=== PATIENT | female | born 1955 | race Caucasian/White ===

== ENCOUNTER 2017-09-12 15:40 | Emergency (ER) | payer MEDICAID, OTHER ==
[2017-09-12 15:41] VITALS: BMI 28.3
[2017-09-12] MEDS ORDERED: Sodium Chloride 0.9% 1,000 ML IV STA (16:11)
--- NOTE | 2017-09-12 16:14 | C.PDOC ---
Time Seen by Provider: 09/12/17 16:07 Chief Complaint (Nursing): Abdominal Pain Past Medical History Vital Signs: Last Vital Signs Temp 97.9 F 09/12/17 15:49 Pulse 85 09/12/17 15:49 Resp 18 09/12/17 15:49 BP 153/79 H 09/12/17 15:49 Pulse Ox 99 09/12/17 15:49 - Medical History PMH: Diabetes, HTN, Hypercholesterolemia Denies: Chronic Kidney Disease Family History: States: Unknown Family Hx - Social History Hx Tobacco Use: No Hx Alcohol Use: No Hx Substance Use: No - Immunization History Hx Tetanus Toxoid Vaccination: No Hx Influenza Vaccination: No Hx Pneumococcal Vaccination: No ED Course And Treatment O2 Sat by Pulse Oximetry: 99 Disposition - Disposition
[2017-09-12 16:45] LABS: BASO % 0.5 % (0.0-2.0); EOS # 0.1 K/uL (0.0-0.7); EOS % 1.9 % (0.0-4.0); HEMATOCRIT 34.6 % (34.0-47.0); LYMPH # 2.3 K/uL (1.0-4.3); LYMPH % 35.1 % (20.0-40.0); MEAN CELL VOLUME 83.9 fL (81.0-99.0); MEAN CORPUSCULAR HEMOGLOBIN 27.4 pg (27.0-31.0); MEAN CORPUSCULAR HGB CONC 32.6 g/dL (33.0-37.0); MEAN PLATELET VOLUME 8.3 fL (7.2-11.7); MONO # 0.6 K/uL (0.0-0.8); MONO % 9.7 % (0.0-10.0); RED CELL DISTRIBUTION WIDTH 13.7 % (11.5-14.5); WHITE BLOOD COUNT 6.4 K/uL (4.8-10.8)
[2017-09-12] MEDS ORDERED: Sodium Chloride 0.9% 1,000 ML ONE (16:45)
[2017-09-12 16:51] LABS: URINE BILIRUBIN NEGATIVE (NEGATIVE); URINE BLOOD NEGATIVE (NEGATIVE); URINE COLOR Straw (YELLOW); URINE GLUCOSE (UA) NORMAL (Normal); URINE KETONE NEGATIVE (NEGATIVE); URINE LEUKOCYTE ESTERASE NEG Leu/uL (Negative); URINE PROTEIN NEGATIVE (NEGATIVE); URINE UROBILINOGEN NORMAL mg/dL (0.2-1.0); WBC URINE < 1 /hpf (0-5)
--- NOTE | 2017-09-12 16:56 | C.PDOC ---
History Of Present Illness 61 y/o female presents to the ER complaining of pain in the epigastric region in the abdomen which has been present for the past 3 to 4 days. Patient reports that she feels some distention. Patient reports she has diarrhea and flatus. Patient denies having hematuria or fever. Time Seen by Provider: 09/12/17 16:07 Chief Complaint (Nursing): Abdominal Pain History Per: Patient History/Exam Limitations: no limitations Onset/Duration Of Symptoms: Hrs Current Symptoms Are (Timing): Still Present Severity: Moderate Past Medical History Reviewed: Historical Data, Nursing Documentation, Vital Signs Vital Signs: Last Vital Signs Temp 97.9 F 09/12/17 15:49 Pulse 85 09/12/17 15:49 Resp 18 09/12/17 15:49 BP 153/79 H 09/12/17 15:49 Pulse Ox 99 09/12/17 17:06 - Medical History PMH: Diabetes, HTN, Hypercholesterolemia Denies: Chronic Kidney Disease Surgical History: No Surg Hx Family History: States: No Known Family Hx - Social History Hx Tobacco Use: No Hx Alcohol Use: No Hx Substance Use: No - Immunization History Hx Tetanus Toxoid Vaccination: No Hx Influenza Vaccination: No Hx Pneumococcal Vaccination: No Review Of Systems Except As Marked, All Systems Reviewed And Found Negative. Constitutional: Negative for: Fever, Chills Gastrointestinal: Positive for: Abdominal Pain (epigastric region), Diarrhea Genitourinary: Negative for: Hematuria Physical Exam - Physical Exam Additional Physical Exam Comments: Gen: No acute distress. Head: Normocephalic, atraumatic. Eyes: PERRL. ENT: Moist mucous membranes. Neck: Supple. Chest: No tenderness. CV: Regular rate. Radial pulses 2+ bilaterally. Resp: Clear to auscultation bilaterally. Abd: Soft, Nontender, Distended, lower abdominal surgical scar Extremities: No swelling or tenderness. Skin: No rash. Neuro: Alert, no focal deficit. ED Course And Treatment - Laboratory Results Result Diagrams: 09/12/17 16:40 09/12/17 16:40 O2 Sat by Pulse Oximetry: 99 Medical Decision Making Medical Decision Making: Patient in no acute distress. Labs unremarkable. CT Impression: Postsurgical changes of the abdomen as described. Retention of formed stool suggesting constipation. No acute findings such as bowel obstruction. Will discharge, medications, f/u PMD, return to ED for worsening pain, fever, vomiting, dyspnea. Disposition - Disposition Disposition: HOME/ ROUTINE Disposition Time: 18:29 Condition: STABLE Prescriptions: Docusate [Colace] 100 mg PO BID #30 cap Polyethylene Glycol 3350 [Miralax] 17 gm PO DAILY #238 gm Instructions: Constipation (ED) Forms: [facility] (Portuguese) - Clinical Impression Clinical Impression: Constipation - Scribe Statement The provider has reviewed the documentation as recorded by the Peter Ennis Provider Attestation: All medical record entries made by the Peter were at my direction and personally dictated by me. I have reviewed the chart and agree that the record accurately reflects my personal performance of the history, physical exam, medical decision making, and the department course for this patient. I have also personally directed, reviewed, and agree with the discharge instructions and disposition.
[2017-09-12 16:57] LABS: ALB/GLOB RATIO 1.2 (1.0-2.1); ALKALINE PHOSPHATASE 99 U/L (38-126); ALT/SGPT 24 U/L (9-52); AST/SGOT 26 U/L (14-36); BILIRUBIN,TOTAL 0.3 mg/dL (0.2-1.3); BLOOD UREA NITROGEN 8 mg/dL (7-17); CALCIUM 8.2 mg/dl (8.6-10.4); CARBON DIOXIDE 24 mmol/L (22-30); CHLORIDE 105 mmol/L (98-107); GFR AFRICAN-AMERICAN > 60; GLUCOSE,RANDOM 92 mg/dL (65-105); POTASSIUM 3.3 mmol/L (3.6-5.2); SODIUM 138 mmol/L (132-148); TOTAL PROTEIN 7.5 g/dL (6.3-8.3)
[2017-09-12] MEDS ORDERED: Iodixanol 320 MG/ML 100 ML BOTTLE IV ONE (17:37)
[2017-09-12 18:53] VITALS: BP 118/76; PULSE 81; RESP 16; TEMP 98.2; O2SAT 98
--- NOTE | 2017-09-13 08:21 | CT ---
PROCEDURE: CT Abdomen and Pelvis with contrast HISTORY: abd distention, vomiting COMPARISON: Abdomen and pelvis CT with contrast 03/27/2016. TECHNIQUE: Following the intravenous administration of iodinated contrast material, a CT examination of the abdomen and pelvis performed from the domes of the diaphragms to the symphysis pubis with reformatted datasets provided not only axial but also sagittal and coronal planes. Oral contrast was not administered as per referring physician request. Contrast dose: Visipaque 320, 100 cc. Radiation dose: Total exam DLP = 502.98 mGy-cm. This CT exam was performed using one or more of the following dose reduction techniques: Automated exposure control, adjustment of the mA and/or kV according to patient size, and/or use of iterative reconstruction technique. FINDINGS: LOWER THORAX: Unremarkable. LIVER: Unremarkable. No gross lesion or ductal dilatation. GALLBLADDER AND BILE DUCTS: The gallbladder is contracted is poorly evaluated. No radiodense cholelithiasis is appreciated or pericholecystic fluid collection. PANCREAS: Unremarkable. No gross lesion or ductal dilatation. SPLEEN: Unremarkable. ADRENALS: Unremarkable. No mass. KIDNEYS AND URETERS: Unremarkable. No hydronephrosis. No solid mass. VASCULATURE: Unremarkable. No aortic aneurysm. BOWEL: Postop changes are once again seen related to the stomach. A left flank/ lower quadrant small bowel, likely a function of gastric bypass surgery. No bowel obstruction. No gross mural thickening. APPENDIX: Normal appendix. PERITONEUM: Unremarkable. No free fluid. No free air. LYMPH NODES: Unremarkable. No enlarged lymph nodes. BLADDER: Unremarkable. REPRODUCTIVE: Unremarkable. BONES: No acute fracture. OTHER FINDINGS: None. IMPRESSION: New acute abdominal or pelvic findings. Prior postop changes from gastric bypass surgery are again appreciated. Prior small-bowel dilatation at the left lower quadrant appears to have resolved. If symptoms persist or worsen follow-up CT may be considered.
== END 2017-09-12 19:21 | disposition home or self-care (01) ==
LOC: C.ER 15:40
DX: K59.00 Constipation, unspecified (principal); I10 Essential (primary) hypertension; E11.9 Type 2 diabetes mellitus without complications; E78.00 Pure hypercholesterolemia, unspecified
CPT/HCPCS: 74177; 80053; 81001; 83690; 85025; 96361; 96374; 99284; J2405; J7040; Q9967

== ENCOUNTER 2018-05-01 17:32 | Emergency (ER) | payer MEDICAID ==
[2018-05-01 17:33] VITALS: BMI 28.3
--- NOTE | 2018-05-01 20:05 | C.PDOC ---
History Of Present Illness 62 y/o female presents to the emergency department with complaints of cough, congestion and body aches intermittently for the past 3 days, associated with knee discomfort. Patient denies fever, chills, or vomiting; otherwise she is currently speaking complete sentences. Time Seen by Provider: 05/01/18 20:05 Chief Complaint (Nursing): Cough, Cold, Congestion History Per: Patient History/Exam Limitations: no limitations Onset/Duration Of Symptoms: Days Current Symptoms Are (Timing): Still Present Severity: Moderate Pain Scale Rating Of: 4 Recent travel outside of the [place]: No Past Medical History Reviewed: Historical Data, Nursing Documentation, Vital Signs Vital Signs: Last Vital Signs Temp 98.2 F 05/01/18 17:55 Pulse 67 05/01/18 20:50 Resp 14 05/01/18 20:50 BP 130/73 05/01/18 20:50 Pulse Ox 98 05/01/18 21:28 - Medical History PMH: Diabetes, HTN, Hypercholesterolemia Denies: Chronic Kidney Disease Family History: States: No Known Family Hx - Social History Hx Tobacco Use: No Hx Alcohol Use: No Hx Substance Use: No - Immunization History Hx Tetanus Toxoid Vaccination: No Hx Influenza Vaccination: No Hx Pneumococcal Vaccination: No Review Of Systems Constitutional: Positive for: Other (Body aches). Negative for: Fever, Chills Cardiovascular: Negative for: Chest Pain, Palpitations Respiratory: Positive for: Cough, Other (Congestion) Gastrointestinal: Negative for: Nausea, Vomiting, Diarrhea Musculoskeletal: Positive for: Other (Knee pain) Neurological: Negative for: Weakness, Numbness Physical Exam - Physical Exam Appears: Non-toxic Skin: Warm, Dry Head: Normacephalic Eye(s): bilateral: Normal Inspection Oral Mucosa: Moist Throat: No Erythema, No Exudate Neck: Trachea Midline, Supple Chest: Symmetrical, No Tenderness Cardiovascular: Rhythm Regular Respiratory: No Rales, No Rhonchi, No Wheezing Gastrointestinal/Abdominal: Soft, No Tenderness Neurological/Psych: Oriented x3 ED Course And Treatment - Laboratory Results Result Diagrams: 05/01/18 20:30 05/01/18 20:30 ECG: Interpreted By Me, Viewed By Me ECG Rhythm: Sinus Rhythm (60), Nonspecific Changes O2 Sat by Pulse Oximetry: 98 (RA) Pulse Ox Interpretation: Normal - Radiology CXR: Interpreted by Me, Viewed By Me CXR Interpretation: No: Infiltrates, Fracture, Pnemothorax Progress Note: Blood work, ECG, and chest x-ray ordered. Toradol and duoneb administered. Reevaluation Time: 22:11 Reassessment Condition: Improved Medical Decision Making Medical Decision Making: Upon provider reevaluation patient is feeling better, is medically stable, and requires no further treatment in the ED at this time. Patient will be discharged home with Rx for albuterol, naproxen . Counseling was provided and all questions were answered regarding diagnosis and need for follow up with the referred clinic. There is agreement to discharge plan. Return if symptoms persist or worsen. Disposition Counseled Patient/Family Regarding: Studies Performed, Diagnosis, Need For Followup, Rx Given - Disposition Referrals: [facility] [Outside] [facility] [Outside] Disposition: HOME/ ROUTINE Disposition Time: 20:05 Condition: FAIR Additional Instructions: Please return if symptoms recur Prescriptions: Albuterol HFA [Ventolin HFA 90 mcg/actuation (8 g)] 2 puff IH [id number] PRN #1 puff PRN Reason: Wheezing Naproxen [Naprosyn] 1 tab PO BID PRN #25 tab PRN Reason: Pain Instructions: Upper Respiratory Infection (ED) Forms: [facility] [employer] (Russian) - Clinical Impression Clinical Impression: URI (upper respiratory infection) - Scribe Statement The provider has reviewed the documentation as recorded by the Peter Corey Provider Attestation: All medical record entries made by the Scribe were at my direction and personally dictated by me. I have reviewed the chart and agree that the record accurately reflects my personal performance of the history, physical exam, medical decision making, and the department course for this patient. I have also personally directed, reviewed, and agree with the discharge instructions and disposition.
[2018-05-01 20:34] LABS: BASO % 0.6 % (0.0-2.0); EOS # 0.2 K/uL (0.0-0.7); EOS % 2.9 % (0.0-4.0); HEMOGLOBIN 11.2 g/dL (11.0-16.0); LYMPH # 2.6 K/uL (1.0-4.3); LYMPH % 38.1 % (20.0-40.0); MEAN CELL VOLUME 83.8 fL (81.0-99.0); MEAN CORPUSCULAR HEMOGLOBIN 27.2 pg (27.0-31.0); MEAN CORPUSCULAR HGB CONC 32.5 g/dL (33.0-37.0); MEAN PLATELET VOLUME 8.2 fL (7.2-11.7); MONO # 0.6 K/uL (0.0-0.8); MONO % 9.3 % (0.0-10.0); NEUT # 3.4 K/uL (1.8-7.0); NEUT % 49.1 % (50.0-75.0); NRBC % 0.1 % (0.0-2.0); RBC 4.1 Mil/uL (3.80-5.20); RED CELL DISTRIBUTION WIDTH 13.8 % (11.5-14.5); WHITE BLOOD COUNT 6.9 K/uL (4.8-10.8)
[2018-05-01 20:43] LABS: PROTHROMBIN TIME 10.9 SECONDS (9.7-12.2)
[2018-05-01 20:57] LABS: ALB/GLOB RATIO 1.4 (1.0-2.1); ALBUMIN 4.3 g/dL (3.5-5.0); ALT/SGPT 24 U/L (9-52); AST/SGOT 24 U/L (14-36); BLOOD UREA NITROGEN 15 mg/dL (7-17); CALCIUM 8.8 mg/dl (8.6-10.4); GFR AFRICAN-AMERICAN > 60; GFR NON-AFRICAN AMERICAN > 60
[2018-05-01] MEDS: Albuterol-Ipratrop 3 mg / 0.5 (3 ml) UD IH SCH (21:26)
[2018-05-01 21:27] LABS: ARTERIAL BLOOD GAS HCO3 25.7 mmol/L (21-28); ARTERIAL BLOOD GAS O2 SAT 97.6 % (95-98); ARTERIAL BLOOD GAS PCO2 42 mm/Hg (35-45); ARTERIAL BLOOD GAS PO2 107 mm/Hg (80-100); ARTERIAL BLOOD GAS TCO2 27.3 mmol/L (22-28)
[2018-05-01] MEDS ORDERED: Albuterol-Ipratrop 3 mg / 0.5 (3 ml) UD ONE (21:35)
[2018-05-01 22:17] VITALS: BP 122/59; PULSE 69; RESP 18; TEMP 98; O2SAT 97
--- NOTE | 2018-05-02 10:12 | RAD ---
Date of service: 05/01/2018 HISTORY: Shortness of breath COMPARISON: No prior. TECHNIQUE: Chest PA and lateral FINDINGS: LUNGS: Diffuse increased interstitial lung markings. Biapical pleural thickening. PLEURA: No significant pleural effusion identified. No pneumothorax apparent. CARDIOVASCULAR: Normal. OSSEOUS STRUCTURES: Degenerative changes in the spine. VISUALIZED UPPER ABDOMEN: Gaseous distention of bowel loops in the upper abdomen. OTHER FINDINGS: None. IMPRESSION: Diffuse increased interstitial lung markings. Biapical pleural thickening.
--- NOTE | 2018-05-02 12:00 | CARD ---
APPROVED REPORT Date of service: 05/01/2018 EKG Measurement Heart [id number] <Conclusion> Normal sinus rhythm Normal ECG
== END 2018-05-01 22:31 | disposition home or self-care (01) ==
LOC: C.ER 17:32
DX: J06.9 Acute upper respiratory infection, unspecified (principal); E11.9 Type 2 diabetes mellitus without complications; I10 Essential (primary) hypertension; E78.00 Pure hypercholesterolemia, unspecified
CPT/HCPCS: 71046; 80053; 82803; 83735; 85025; 85610; 85730; 93005; 94640; 96374; 99285; J1885

== ENCOUNTER 2018-09-16 15:13 | Emergency (ER) | payer MEDICAID ==
[2018-09-16 15:14] VITALS: BMI 28.3
[2018-09-16 15:28] VITALS: BP 153/85; PULSE 64; RESP 20; TEMP 97.9; O2SAT 100
--- NOTE | 2018-09-16 16:23 | C.PDOC ---
History Of Present Illness 62 year old female presents to the ED for evaluation of fatigue and occasional dizziness for 3 weeks. Patient reports there are other sick contacts at home with mild viral syndrome. 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 Patient is requesting some pills to give her more energy. Patient has history of anxiety. She denies fever, chills. Time Seen by Provider: 09/16/18 16:11 Chief Complaint (Nursing): Dizziness/Lightheaded History Per: Patient History/Exam Limitations: no limitations Onset/Duration Of Symptoms: Other (three weeks ) Current Symptoms Are (Timing): Still Present Past Medical History Reviewed: Historical Data, Nursing Documentation, Vital Signs Vital Signs: Last Vital Signs Temp 97.9 F 09/16/18 15:26 Pulse 64 09/16/18 15:26 Resp 20 09/16/18 15:26 BP 153/85 H 09/16/18 15:26 Pulse Ox 100 09/16/18 15:26 - Medical History PMH: Diabetes, HTN, Hypercholesterolemia Denies: Chronic Kidney Disease Surgical History: No Surg Hx Family History: States: Unknown Family Hx - Social History Hx Tobacco Use: No Hx Alcohol Use: No Hx Substance Use: No - Immunization History Hx Tetanus Toxoid Vaccination: No Hx Influenza Vaccination: No Hx Pneumococcal Vaccination: No Review Of Systems Constitutional: Positive for: Other (fatigue ) Neurological: Positive for: Dizziness Physical Exam - Physical Exam Appears: Non-toxic, No Acute Distress, Other (anxious ) Skin: Normal Color, Warm, Dry Head: Atraumatic, Normacephalic Eye(s): bilateral: Normal Inspection Oral Mucosa: Moist Neck: Supple Chest: Symmetrical, No Deformity, No Tenderness Cardiovascular: Rhythm Regular, No Murmur Respiratory: Normal Breath Sounds, No Rales, No Rhonchi, No Wheezing Extremity: Normal ROM, Capillary Refill (less than 2 seconds ) Neurological/Psych: Oriented x3, Normal Speech, Normal Cognition ED Course And Treatment O2 Sat by Pulse Oximetry: 100 (on RA ) Pulse Ox Interpretation: Normal Progress Note: Motrin PO given. 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 Disposition Doctor Will See Patient In The: Office Counseled Patient/Family Regarding: Studies Performed, Diagnosis - Disposition Referrals: [facility] [Outside] [facility] [Outside] [facility] [Outside] [facility] [Outside] Disposition: HOME/ ROUTINE Disposition Time: 16:23 Condition: GOOD Additional Instructions: mild viral syndrome [place]a 2-3 [place]rington en lawson casa Ibuprofeno/advil 400 mg cada 6 horas akshat necessario para dolor de las caderas sigue con lawson medico akshat necessario. Instructions: Fatigue (DC) Forms: [facility] (Estonian) Print Language: SWAZI - Clinical Impression Clinical Impression: Anxiety, Malaise and fatigue - Scribe Statement The provider has reviewed the documentation as recorded by the Scribe (Juliette Pearl) Provider Attestation: All medical record entries made by the Scribe were at my direction and personally dictated by me. I have reviewed the chart and agree that the record accurately reflects my personal performance of the history, physical exam, medical decision making, and the department course for this patient. I have also personally directed, reviewed, and agree with the discharge instructions and disposition.
== END 2018-09-16 16:41 | disposition home or self-care (01) ==
LOC: C.ER 15:13
DX: F41.9 Anxiety disorder, unspecified (principal); R53.83 Other fatigue

== ENCOUNTER 2018-11-20 19:52 | Emergency (ER) | payer MEDICAID ==
[2018-11-20 19:53] VITALS: BMI 28.3
--- NOTE | 2018-11-20 21:00 | C.PDOC ---
History Of Present Illness 63 year old female presents to the ED c/o colichy abdominal pain and anxiety. Patient reports previous history of anxiety with no psychiatric follow up. Patient with many prior evaluations in the ED for same. Patient denies fever, ch ills, nausea, vomit, diarrhea, weakness, numbness. Time Seen by Provider: 11/20/18 20:55 Chief Complaint (Nursing): Abdominal Pain History Per: Patient History/Exam Limitations: no limitations Onset/Duration Of Symptoms: Days Current Symptoms Are (Timing): Still Present Location Of Pain/Discomfort: Diffuse Quality Of Discomfort: "Pain", Other Associated Symptoms: denies: Nausea, Vomiting, Diarrhea, Urinary Symptoms Recent travel outside of the [place]: No Additional History Per: Patient Abnormal Vaginal Bleeding: No Past Medical History Reviewed: Historical Data, Nursing Documentation, Vital Signs Vital Signs: Last Vital Signs Temp 97.8 F 11/20/18 20:28 Pulse 63 11/20/18 20:28 Resp 20 11/20/18 20:28 BP 174/86 H 11/20/18 20:28 Pulse Ox 100 11/20/18 20:28 - Medical History PMH: Diabetes, HTN, Hypercholesterolemia Denies: Chronic Kidney Disease Surgical History: No Surg Hx Family History: States: Unknown Family Hx - Social History Hx Tobacco Use: No Hx Alcohol Use: No Hx Substance Use: No - Immunization History Hx Tetanus Toxoid Vaccination: No Hx Influenza Vaccination: No Hx Pneumococcal Vaccination: No Review Of Systems Constitutional: Negative for: Fever, Chills Eyes: Negative for: Vision Change Cardiovascular: Negative for: Chest Pain Respiratory: Negative for: Cough, Shortness of Breath Gastrointestinal: Positive for: Abdominal Pain, Constipation. Negative for: Nausea, Vomiting, Diarrhea Skin: Negative for: Rash Neurological: Negative for: Weakness, Numbness Psych: Positive for: Anxiety Physical Exam - Physical Exam Appears: Non-toxic, No Acute Distress Skin: Normal Color, Warm, Dry Head: Atraumatic, Normacephalic Eye(s): bilateral: Normal Inspection Neck: Normal ROM, Supple Chest: Symmetrical Cardiovascular: Rhythm Regular Respiratory: Normal Breath Sounds, No Rales, No Rhonchi, No Wheezing Gastrointestinal/Abdominal: Soft, Tenderness (vaguely), No Guarding, No Rebound, Other (tympanic in the epigastrum and dull in the bilateral sides) Extremity: Normal ROM, No Tenderness, No Swelling Neurological/Psych: Oriented x3, Normal Speech, Normal Cognition Gait: Steady ED Course And Treatment - Laboratory Results Result Diagrams: 11/20/18 21:15 11/20/18 21:15 Lab Interpretation: Normal (ua neg.) Urine POC: Negative O2 Sat by Pulse Oximetry: 100 (ON RA) Pulse Ox Interpretation: Normal - Radiology CXR: Interpreted by Me CXR Interpretation: Yes: No Acute Disease - Other Rad abd x 2 X-Ray: Interpreted by Me (+FOS, no obst) Medical Decision Making Medical Decision Making: acute on chronic constipation Disposition Doctor Will See Patient In The: Office Counseled Patient/Family Regarding: Studies Performed, Diagnosis - Disposition Referrals: [facility] [Outside] [facility] [Outside] [facility] [Outside] [facility] [Outside] [facility] [Outside] Disposition: HOME/ ROUTINE Disposition Time: 22:13 Condition: GOOD Additional Instructions: ralph el purgante ahora y re-evalua lawson molestia del abdomen despues de usar el rai 2-3 veces Si no se mejora regressa la sofia de emergencias en la manana Cambios de dieta y ejercisio Purgantes occasionalmente akshat necessario Instructions: Constipation in Adults, Anxiety, Adult (DC) Forms: [employer] (Bahamian) Print Language: GHANAIAN - Clinical Impression Clinical Impression: Anxiety, Abdominal pain, colicky - Scribe Statement The provider has reviewed the documentation as recorded by the Scribe Masood Gibson All medical record entries made by the Scribe were at my direction and personally dictated by me. I have reviewed the chart and agree that the record accurately reflects my personal performance of the history, physical exam, medical decision making, and the department course for this patient. I have also personally directed, reviewed, and agree with the discharge instructions and disposition.
[2018-11-20] MEDS ORDERED: Sodium Chloride 0.9% 1,000 ML IV ONE (21:01)
[2018-11-20 21:19] LABS: BASO # 0.1 K/uL (0.0-0.2); BASO % 0.8 % (0.0-2.0); EOS # 0.2 K/uL (0.0-0.7); EOS % 1.7 % (0.0-4.0); HEMOGLOBIN 11.6 g/dL (11.0-16.0); LYMPH # 2.5 K/uL (1.0-4.3); LYMPH % 25.7 % (20.0-40.0); MEAN CELL VOLUME 86.4 fL (81.0-99.0); MEAN CORPUSCULAR HEMOGLOBIN 27.5 pg (27.0-31.0); MEAN CORPUSCULAR HGB CONC 31.8 g/dL (33.0-37.0); MEAN PLATELET VOLUME 9.2 fL (7.2-11.7); MONO # 0.7 K/uL (0.0-0.8); MONO % 7.4 % (0.0-10.0); NEUT # 6.2 K/uL (1.8-7.0); NEUT % 64.4 % (50.0-75.0); RBC 4.23 Mil/uL (3.80-5.20); RED CELL DISTRIBUTION WIDTH 13.9 % (11.5-14.5); WHITE BLOOD COUNT 9.6 K/uL (4.8-10.8)
[2018-11-20 21:32] LABS: SQUAMOUS EPITHIAL < 1 /hpf (0-5); URINE BACTERIA RARE (<OCC); URINE BILIRUBIN NEGATIVE (NEGATIVE); URINE BLOOD NEGATIVE (NEGATIVE); URINE CLARITY Clear (Clear); URINE COLOR Yellow (YELLOW); URINE GLUCOSE (UA) NORMAL (Normal); URINE LEUKOCYTE ESTERASE NEG Leu/uL (Negative); URINE PROTEIN NEGATIVE (NEGATIVE); URINE UROBILINOGEN NORMAL mg/dL (0.2-1.0)
[2018-11-20 21:41] LABS: HCG,QUALITATIVE URINE NEGATIVE (NEGATIVE)
[2018-11-20 21:47] LABS: ALB/GLOB RATIO 1.3 (1.0-2.1); ALBUMIN 4.7 g/dL (3.5-5.0); BLOOD UREA NITROGEN 13 mg/dL (7-17); CALCIUM 9.2 mg/dl (8.6-10.4); GFR NON-AFRICAN AMERICAN > 60; LIPASE 48 U/L (23-300)
[2018-11-20 21:48] LABS: ALT/SGPT 18 U/L (9-52); AST/SGOT 45 U/L (14-36)
[2018-11-20] MEDS ORDERED: Magnesium Citrate Oral SOL (300 ml) PO ONE (22:15)
[2018-11-20] MEDS ORDERED: Magnesium Citrate Oral SOL (300 ml) ONE (22:26)
[2018-11-20 22:34] VITALS: BP 133/75; PULSE 69; RESP 16; TEMP 98.2
[2018-11-20 23:55] VITALS: O2SAT 100
--- NOTE | 2018-11-21 08:41 | RAD ---
Date of service: 11/20/2018 PROCEDURE: Radiographs of the chest and abdomen (obstructive series) HISTORY: abd pain COMPARISON: Prior CT abdomen and pelvis 09/12/2017 report noted TECHNIQUE: AP radiograph of the chest, with upright and supine radiographs of the abdomen. FINDINGS: CHEST: Lungs: Clear. Cardiovascular: Normal size heart. No pulmonary vascular congestion. No aortic atherosclerotic calcification present Pleura: No pleural fluid. No pneumothorax. Other findings: None. ABDOMEN AND PELVIS: Bowel: Surgical changes chain sutures and clips compatible with prior gastric bypass surgery are suggested. A few small bowel loops do appear segmentally focally prominent greater than 3 cm in size-for example series 2, image 1 in the left upper abdominal quadrant bordering the surgical clips. The air-fluid level in the small bowel loops in the right abdomen is also suggested some of the distal small bowel loops in the left paracentral pelvis appear top normal.. A partial small-bowel obstruction is a consideration. There is trace gas and extensive stool throughout the colon suggested. Free air: None. Bones: Thoraco lumbar spondylosis. Bilateral hip arthrosis. Inferior right SI joint arthrosis. Other findings: None. IMPRESSION: No pulmonary infiltrate. Gastric bypass surgical changes suggested. A partial small-bowel obstruction given the aforementioned small-bowel findings is a consideration. Continued close follow-up is advised. No free air seen. No complete obstruction appreciated. Extensive stool retention noted. Comments: Study marked for PA review .
== END 2018-11-20 22:42 | disposition home or self-care (01) ==
LOC: C.ER 19:52
DX: R10.84 Generalized abdominal pain (principal); F41.9 Anxiety disorder, unspecified
CPT/HCPCS: 74022; 80053; 81001; 83690; 84703; 85025; 96361; 96374; 96375; 99284; J1885; J2405; J7030